=== PATIENT | male | born 1985 | race Caucasian/White ===

== ENCOUNTER 2016-09-29 13:44 | Emergency (ER) | payer OTHER ==
[~2016-09-29] VITALS: Ht 175.3 cm; Wt 47.5 kg
[2016-09-29 13:51] VITALS: BP 124/72
[2016-09-29] MEDS ORDERED: LIDOCAINE 1%, 20ML ONE (14:00)
[2016-09-29] MEDS ORDERED: LIDOCAINE 1%, 20ML INFIL ONE (14:00)
[2016-09-29] MEDS ORDERED: DIPH,PERTUSS(ACELL),TET VAC/PF 0.5 ML IM-VACC ONE ×2 (14:00)
[2016-09-29] MEDS ORDERED: BACITRACIN ZINC OINT 500U/GM, 0.9 GM ONE (14:39)
== END 2016-09-29 14:55 | disposition home or self-care (01) ==
LOC: ED 14:53
DX: S61.211A Laceration without foreign body of left index finger without damage to nail, initial encounter (principal); Z23 Encounter for immunization; W26.0XXA Contact with knife, initial encounter; Y93.89 Activity, other specified; Y99.8 Other external cause status; Y92.89 Other specified places as the place of occurrence of the external cause
CPT/HCPCS: 12001; 90471; 90715

== ENCOUNTER 2016-12-30 18:06 | Emergency (ER) | payer SELFPAY ==
[~2016-12-30] VITALS: Ht 172.7 cm; Wt 57.0 kg
[2016-12-30 18:07] VITALS: BP 133/75
[2016-12-30] MEDS ORDERED: KETOROLAC 30 MG/1 ML ONE (19:29)
[2016-12-30] MEDS ORDERED: CYCLOBENZAPRINE 10 MG TABLET PO ONE (19:30)
[2016-12-30] MEDS ORDERED: KETOROLAC 30 MG/1 ML IM ONE (19:30)
[2016-12-30] MEDS ORDERED: METHOCARBAMOL 750 MG TABLET ONE (19:33)
[2016-12-30] MEDS ORDERED: METHOCARBAMOL 750 MG TABLET PO ONE (20:00)
== END 2016-12-30 20:06 | disposition home or self-care (01) ==
LOC: ED 20:00
DX: S46.812A Strain of other muscles, fascia and tendons at shoulder and upper arm level, left arm, initial encounter (principal); G89.11 Acute pain due to trauma; V89.0XXA Person injured in unspecified motor-vehicle accident, nontraffic, initial encounter; Y93.89 Activity, other specified; Y92.488 Other paved roadways as the place of occurrence of the external cause; Y99.8 Other external cause status
CPT/HCPCS: 96372; 99283; J1885

== ENCOUNTER 2018-08-02 08:12 | Emergency (ER) | payer OTHER ==
[~2018-08-02] VITALS: Ht 175.3 cm; Wt 55.7 kg
[2018-08-02 08:24] VITALS: BP 126/78
--- NOTE | 2018-08-02 08:52 | NUR ---
TO ROOM 20
== END 2018-08-02 09:35 | disposition home or self-care (01) ==
LOC: ED 09:10
DX: K02.9 Dental caries, unspecified (principal)
CPT/HCPCS: 99283

== ENCOUNTER 2020-03-17 10:59 | Emergency (ER) | payer SELFPAY ==
[~2020-03-17] VITALS: Ht 172.7 cm; Wt 55.0 kg
--- NOTE | 2020-03-17 11:49 | NUR ---
PT RESTING IN BED , NO DISTRESS.
[2020-03-17 12:12] VITALS: BP 109/68
--- NOTE | 2020-03-17 12:21 | NUR ---
PT WALKED OUT SELF, VSS, GAVE SLING AND RX. IF S&S WORSEN RETURN TO THE ER
== END 2020-03-17 12:23 | disposition home or self-care (01) ==
LOC: ED 11:53
DX: S46.911A Strain of unspecified muscle, fascia and tendon at shoulder and upper arm level, right arm, initial encounter (principal); X58.XXXA Exposure to other specified factors, initial encounter; Y93.H1 Activity, digging, shoveling and raking; Y92.89 Other specified places as the place of occurrence of the external cause; Y99.8 Other external cause status
CPT/HCPCS: 99283